=== PATIENT | male | born 1955 | race Asian ===

== ENCOUNTER 2017-02-02 12:58 | Outpatient (CLI) | payer BC | END 2017-02-02 23:59 | disposition home or self-care (01) | LOC: US 12:58 | DX: N40.0 Benign prostatic hyperplasia without lower urinary tract symptoms (principal) | CPT/HCPCS: 51798 ==

== ENCOUNTER → 2017-03-20 | Outpatient (CLI) | payer BC | END | disposition home or self-care (01) | LOC: XRAY 09:07 | PROVIDERS: ATTEND Internal Medicine | DX: M25.78 Osteophyte, vertebrae (principal); M54.2 Cervicalgia | CPT/HCPCS: 72050; 72072 ==

== ENCOUNTER 2020-06-22 06:45 | Outpatient (CLI) | payer BC, OTHER ==
[2020-06-22 09:19] LABS: THYROID STIMULATING HORMONE 2.149 mIU/mL (0.358-3.740)
[2020-06-22 09:48] LABS: BASOPHILS # (AUTO) 0.1 K/uL (0.0-8.0); EOSINOPHILS # (AUTO) 0.2 K/uL (0.0-0.7); EOSINOPHILS % (AUTO) 3.3 % (0.0-7.0); HEMATOCRIT 37.4 % (36.7-47.1); HEMOGLOBIN 12.3 g/dL (12.5-16.3); LYMPHOCYTES % (AUTO) 39.5 % (20.5-51.5); MEAN CORPUSCULAR HEMOGLOBIN 28.9 uug (23.8-33.4); MEAN CORPUSCULAR HGB CONC 33 g/dL (32.5-36.3); MEAN CORPUSCULAR VOLUME 88.3 fL (73.0-96.2); MONOCYTES # (AUTO) 0.8 K/uL (2.0-10.0); MONOCYTES % (AUTO) 10.9 % (0.0-11.0); NEUTROPHILS # (AUTO) 3.4 K/uL (1.8-8.9); NEUTROPHILS % (AUTO) 45.3 % (38.5-71.5); PLATELET COUNT (AUTO) 286 K/uL (152-348); RED BLOOD CELL COUNT(AUTO) 4.24 MIL/uL (4.06-5.63); WHITE BLOOD COUNT (AUTO) 7.5 K/uL (3.6-10.2)
[2020-06-22 11:00] LABS: BILIRUBIN,TOTAL 0.3 mg/dL (0.2-1.0); CREATININE 1.3 mg/dL (0.6-1.3); POTASSIUM 4.4 mmol/L (3.5-5.1); TOTAL PROTEIN, SERUM 7.8 g/dL (6.4-8.2)
== END 2020-06-22 23:59 | disposition home or self-care (01) ==
LOC: LAB 06:45
DX: E11.9 Type 2 diabetes mellitus without complications (principal); E78.5 Hyperlipidemia, unspecified; E89.0 Postprocedural hypothyroidism; E04.2 Nontoxic multinodular goiter; Z79.899 Other long term (current) drug therapy; Z68.31 Body mass index [BMI] 31.0-31.9, adult
CPT/HCPCS: 82043; 82570; 84153; 84443; 85025

== ENCOUNTER 2021-01-24 09:43 | Outpatient (CLI) | payer BC, OTHER ==
[2021-01-24 10:14] LABS: MEAN CORPUSCULAR VOLUME 88.6 fL (73.0-96.2); PLATELET COUNT (AUTO) 271 K/uL (152-348)
[2021-01-24 10:27] LABS: BILIRUBIN,TOTAL 0.6 mg/dL (0.2-1.0); CREATININE 1.2 mg/dL (0.6-1.3); POTASSIUM 4.1 mmol/L (3.5-5.1); TOTAL PROTEIN, SERUM 8.1 g/dL (6.4-8.2)
[2021-01-24 10:35] LABS: THYROID STIMULATING HORMONE 5.109 mIU/mL (0.358-3.740)
== END 2021-01-24 23:59 | disposition home or self-care (01) ==
LOC: LAB 09:43
PROVIDERS: ATTEND Family Medicine
DX: I10 Essential (primary) hypertension (principal); E11.9 Type 2 diabetes mellitus without complications; E78.5 Hyperlipidemia, unspecified
CPT/HCPCS: 36415; 84153; 84443; 85025

== ENCOUNTER 2021-09-02 09:13 | Outpatient (CLI) | payer BC, OTHER ==
[2021-09-02 10:07] LABS: HEMATOCRIT 35.1 % (36.7-47.1); MEAN CORPUSCULAR VOLUME 86.1 fL (73.0-96.2); PLATELET COUNT (AUTO) 289 K/uL (152-348)
[2021-09-02 12:22] LABS: BILIRUBIN,TOTAL 0.5 mg/dL (0.2-1.0); CREATININE 1.3 mg/dL (0.6-1.3); POTASSIUM 4.5 mmol/L (3.5-5.1)
[2021-09-02 13:27] LABS: THYROID STIMULATING HORMONE 0.579 mIU/mL (0.358-3.740)
[2021-09-04 14:15] LABS: *MICROALBUMIN, UR 4.7
== END 2021-09-02 23:59 | disposition home or self-care (01) ==
LOC: LAB 09:13
PROVIDERS: ATTEND Family Medicine
DX: I10 Essential (primary) hypertension (principal); E11.9 Type 2 diabetes mellitus without complications; E78.5 Hyperlipidemia, unspecified
CPT/HCPCS: 36415; 82043; 82570; 84153; 84443; 84481; 85025

== ENCOUNTER 2021-11-22 08:21 | Outpatient (CLI) | payer BC, OTHER | END 2021-11-22 23:59 | disposition home or self-care (01) | LOC: LAB 08:21 | PROVIDERS: ATTEND Internal Medicine Gastroenterology | DX: Z75.3 Unavailability and inaccessibility of health-care facilities (principal) ==

== ENCOUNTER 2021-11-22 09:05 | Outpatient (CLI) | payer BC, OTHER ==
[2021-11-22 09:09] LABS: HEMATOCRIT 36.7 % (36.7-47.1); MEAN CORPUSCULAR HEMOGLOBIN 28.9 uug (23.8-33.4); MEAN CORPUSCULAR VOLUME 86.6 fL (73.0-96.2); PLATELET COUNT (AUTO) 267 K/uL (152-348)
[2021-11-22 09:48] LABS: BILIRUBIN,TOTAL 0.4 mg/dL (0.2-1.0); CREATININE 1.4 mg/dL (0.6-1.3); TOTAL PROTEIN, SERUM 8.2 g/dL (6.4-8.2)
[2021-11-22 10:08] LABS: *BILIRUBIN,URIN NEGATIVE (NEGATIVE); *BLOOD, URINE NEGATIVE (NEGATIVE); *CLARITY,URINE CLEAR (CLEAR); *COLOR,URINE YELLOW (YELLOW); *KETONES,URINE NEGATIVE (NEGATIVE); *UROBILINOGEN,URINE 0.2 E.U./dl (NORMAL); LEUKOCYTE ESTERASE ,URINE NEGATIVE (NEGATIVE); NITRITE, URINE NEGATIVE (NEGATIVE); PH,URINE 5.5 (5.0-8.0); UGLUCOSE NEGATIVE (NEGATIVE)
== END 2021-11-22 23:59 | disposition home or self-care (01) ==
LOC: LAB 09:05
PROVIDERS: ATTEND Internal Medicine Gastroenterology
DX: Z01.818 Encounter for other preprocedural examination (principal); Z12.11 Encounter for screening for malignant neoplasm of colon; Z01.812 Encounter for preprocedural laboratory examination; Z20.822 Contact with and (suspected) exposure to COVID-19
CPT/HCPCS: 36415; 71045; 85025; 85610; 85730

== ENCOUNTER 2021-11-25 07:50 | Day surgery (SDC) | payer BC, OTHER ==
[2021-11-25] MEDS ORDERED: LIDOCAINE-MPF 2% 5 ML VIAL ONE (10:57)
[2021-11-25] MEDS ORDERED: PROPOFOL 200 MG/20 ML BOTTLE ONE (10:57)
== END 2021-11-25 11:25 | disposition home or self-care (01) ==
LOC: DS 07:50
PROVIDERS: ATTEND Internal Medicine Gastroenterology
DX: Z12.11 Encounter for screening for malignant neoplasm of colon (principal); K63.89 Other specified diseases of intestine; K64.8 Other hemorrhoids; I10 Essential (primary) hypertension; M19.90 Unspecified osteoarthritis, unspecified site; E11.9 Type 2 diabetes mellitus without complications; Z79.899 Other long term (current) drug therapy; Z98.890 Other specified postprocedural states
CPT/HCPCS: 45378; J3490; J7040; A4663